=== PATIENT | male | born 1995 | race Hispanic/Latino ===

== ENCOUNTER 2018-06-30 14:00 | Outpatient (CLI) | payer BC | END 2018-06-30 14:01 | disposition home or self-care (01) | LOC: BICCT 14:00 | PROVIDERS: ATTEND Orthopaedic Surgery Hand Surgery | DX: S62.025A Nondisplaced fracture of middle third of navicular [scaphoid] bone of left wrist, initial encounter for closed fracture (principal) ==

== ENCOUNTER 2018-08-16 15:09 | Outpatient (CLI) | payer BC ==
--- NOTE | 2018-08-16 17:50 | CT ---
LEFT UPPER EXTREMITY CT SCAN WITHOUT IV CONTRAST: 08/16/18 HISTORY: 22-year-old male with history of left hand injury approximately two months ago. There is an incompletely healed transverse fracture of the mid scaphoid bone. There is certainly evid ence for some healing with the amount of nonhealing, probably less than 50%. Focal sclerosis of the p roximal portion of the navicular adjacent to the radius and lunate bone, evidence for developing avas cular necrosis. Patchy bone demineralization suggesting disuse. IMPRESSION: Incompletely healed fracture through the mid navicular bone with probably somewhat less than 50% inco mplete healing. Focal sclerosis of the proximal navicular bone, evidence for developing avascular nec rosis. Bone demineralization evidence for disuse. Depending upon concern, a followup MRI at some poin t might give additional information. POS: [facility]
== END 2018-08-16 15:10 | disposition home or self-care (01) ==
LOC: CT 15:09
PROVIDERS: ATTEND Orthopaedic Surgery Hand Surgery
DX: S62.025A Nondisplaced fracture of middle third of navicular [scaphoid] bone of left wrist, initial encounter for closed fracture (principal); M89.9 Disorder of bone, unspecified; M87.8 Other osteonecrosis